=== PATIENT | female | born 1995 | race Caucasian/White ===

== ENCOUNTER 2020-09-12 14:32 | Emergency (ER) | payer BC, SELFPAY ==
[2020-09-12 14:40] VITALS: BP 123/68; PULSE 100; RESP 16; TEMP 36.4; O2SAT 100
--- NOTE | 2020-09-12 14:55 | PC.NURSE ---
Pt voids for bedside . Note cloudy, foul smelling urine. UA ordered.
--- NOTE | 2020-09-12 15:27 | ED.DENTAL ---
HPI - Dental/Oral General Chief complaint: Dental/Oral Stated complaint: RIGHT JAW PAIN Time Seen by Provider: 09/12/20 15:17 Source: patient Mode of arrival: ambulatory Limitations: no limitations History of Present Illness HPI Narrative: This is a 25-year-old female that presents to the emergency department for toothache over the last year. Reports this morning she noted some swelling around the tooth which prompted her to be seen. Reports she has not seen a dentist for this yet. Denies fever. MD Complaint: tooth pain Location: Tooth # (4) Related Data Home Medications Medication Instructions Recorded Confirmed ibuprofen 09/12/20 Allergies Allergy/AdvReac Type Severity Reaction Status Date / Time brompheniramine Allergy Anaphylaxis Verified 09/12/20 14:48 [From Dimetapp (brompheniramine-PPA)] phenylpropanolamine Allergy Anaphylaxis Verified 09/12/20 14:48 [From Dimetapp (brompheniramine-PPA)] Review of Systems Review of Systems: Narrative: CONSTITUTIONAL: Denies fever ENT: Reports dentalgia All systems reviewed & are unremarkable except as noted in HPI and below PMFSH Past Medical History Medical History (Updated 09/12/20 @ 15:37 by Brissa Vela PA-C) No active medical problems Social History Social History (Updated 09/12/20 @ 15:30 by Brissa Vela PA-C) Substance use: never Exam Narrative: Exam Narrative: GENERAL: Well-appearing, well-nourished, and in no acute distress. HEAD: Normocephalic, atraumatic. EYES: EOMI. ENT: Mucous membranes moist. Oropharynx without tonsillar hypertrophy exudate or other lesions. Bilateral TMs pearly faria non-bulging. Tooth #4 tender to palpation with mild surrounding erythema and edema, no fluctuance to suggest abscess NECK: Supple. No adenopathy or masses. CHEST: Clear to auscultation. No respiratory distress. No wheezes rales or rhonchi HEART: Regular rate and rhythm. No murmur heard. Normal peripheral pulses EXTREMITIES: Normal range of motion. No edema. SKIN: Warm, dry, no rash. NEURO: No focal deficits. Alert and oriented x3. PSYCH: Normal mood and affect Course Vital Signs Vital signs: Vital Signs Temperature 97.5 F L 09/12/20 14:40 Pulse Rate 100 09/12/20 14:40 Respiratory Rate 16 09/12/20 14:40 Blood Pressure 123/68 09/12/20 14:40 Pulse Oximetry 100 09/12/20 14:40 Temperature 97.5 F L 09/12/20 14:40 Pulse Rate 100 09/12/20 14:40 Respiratory Rate 16 09/12/20 14:40 Blood Pressure 123/68 09/12/20 14:40 Pulse Oximetry 100 09/12/20 14:40 MDM - Dental/Oral MDM Narrative Medical decision making narrative: Patient presents to the emergency department for dental pain over the last year. Noted some swelling around the tooth today which prompted her to be seen. She is afebrile and nontoxic-appearing. There is no evidence of abscess on exam. She will be started on oral antibiotics. She was instructed to follow-up with a dentist. She was given warnings to return to the ER Bedside test was performed as patient was unsure of her last menstrual period. This was negative. UA was sent as well, this does not have any overt evidence of infection. Likely contaminated catch Lab Data Attestation: I reviewed the patient's lab results. Labs: Lab Results 09/12/20 Range/Units 14:57 Urine Color Yellow (Yellow) Urine Appearance Cloudy H (Clear) Urine pH 6.0 (5.0-9.0) Ur Specific [place] 1.023 (1.001-1.035) Urine Protein 2+ H (Negative) mg/dL Urine Glucose (UA) Negative (Negative) mg/dL Urine Ketones Negative (Negative) mg/dL Ur Blood (Man) Negative (Negative) Urine Nitrate Negative (Negative) Urine Bilirubin Negative (Negative) Urine Urobilinogen 2.0 H (<2.0) mg/dL Leukocyte Esterase Rfl Trace H (Negative) FIDENCIO/UL Urine RBC 0-2 (0-2) /hpf Urine WBC 4-6 H /hpf Ur Squamous Epith Cells Many H (Few) /hpf Urine Mucus Heavy H /lp
[2020-09-12 15:29] LABS: Add Urine Microscopic? YES; Appearance Urine Cloudy (Clear); Bilirubin Urine Negative (Negative); Blood Urine Negative (Negative); Glucose Urine UA Negative (Negative); Ketones Urine Negative (Negative); Leukocyte Esterase Ur Trace LEU/UL (Negative); Mucus Urine Heavy /lpf; Nitrate Urine Negative (Negative); Protein Urine 2+ mg/dL (Negative); RBC Urine 0-2 /hpf (0-2); Specific Grav Ur 1.023 (1.001-1.035); Squamous Epithelial Cell Urine Many /hpf (Few)
[2020-09-12 15:31] LABS: Color Urine Yellow (Yellow)
== END 2020-09-12 15:53 | disposition home or self-care (01) ==
PROVIDERS: Emergency Provider Emergency Medicine
DX: K08.89 Other specified disorders of teeth and supporting structures (principal)
CPT/HCPCS: 81001; 81025; 99283